=== PATIENT | male | born 1955 | race Caucasian/White ===

== ENCOUNTER 2016-12-07 14:33 | Emergency (ER) | payer BC, OTHER ==
[2016-12-07 14:43] VITALS: BP 162/83
[2016-12-07] MEDS ORDERED: Tetan/Diph/Pertus SYR(Tdap)* 0.5 ML SYR(BOOSTRIX) use SYR IM ONE (14:56)
--- NOTE | 2016-12-07 15:13 | UC ---
Skin Complaint HPI - HPI Summary HPI Summary: Found tick in R hip 2 days ago and pulled off. Today feels fatigued and achy. - History of Current Complaint Chief Complaint: UCSkin Time Seen by Provider: 12/07/16 14:44 Stated Complaint: TICK BITE Hx Obtained From: Patient Onset/Duration: Gradual Onset Timing: Constant Onset Severity: Mild Current Severity: Mild Location: Discrete Character: Redness Aggravating: Nothing Alleviating: Nothing Associated Signs & Symptoms: Positive: Fever Related History: Insect Bite/Sting - Allergy/Home Medications Allergies/Adverse Reactions: Allergies Allergy/AdvReac Type Severity Reaction Status Date / Time No Known Allergies Allergy Verified 12/07/16 14:42 Review of Systems Constitutional: Chills, Fatigue Skin: Other - tick bite Eyes: Negative ENT: Negative Respiratory: Negative Cardiovascular: Negative Gastrointestinal: Negative Genitourinary: Negative Motor: Negative Neurovascular: Negative Musculoskeletal: Negative Neurological: Negative Psychological: Negative All Other Systems Reviewed And Are Negative: Yes PMH/Surg Hx/FS Hx/Imm Hx Previously Healthy: Yes - Surgical History Surgical History: None - Family History Known Family History: Negative: Blood Disorder - Social History Occupation: Employed Full-time Lives: With Family Alcohol Use: Occasionally Substance Use Type: None Smoking Status (MU): Never Smoked Tobacco - Immunization History Most Recent Tetanus Shot: Pt unsure Physical Exam Triage Information Reviewed: Yes Appearance: Well-Appearing, No Pain Distress Vital Signs: Initial Vital Signs Temp 100.3 F 12/07/16 14:41 Pulse 110 12/07/16 14:41 Resp 16 12/07/16 14:41 BP 162/83 12/07/16 14:41 Pulse Ox 97 12/07/16 14:41 Vital Signs Reviewed: Yes Eye Exam: Normal Eyes: Positive: Conjunctiva Clear ENT Exam: Normal ENT: Positive: Normal ENT inspection, Hearing grossly normal, Pharynx normal, TMs normal Dental Exam: Normal Neck exam: Normal Neck: Positive: Supple, Nontender, No Lymphadenopathy Respiratory Exam: Normal Respiratory: Positive: Chest non-tender, Lungs clear, Normal breath sounds, No respiratory distress, No accessory muscle use Cardiovascular: Positive: No Murmur, Tachycardia Musculoskeletal Exam: Normal Musculoskeletal: Positive: Strength Intact, ROM Intact, No Edema Neurological Exam: Normal Neurological: Positive: Alert Psychological Exam: Normal Skin Exam: Normal - tick bite site benign, no erythema, streaking, or drainage Course/Dx - Diagnoses Provider Diagnoses: early localized lyme infection Discharge - Discharge Plan Condition: Stable Disposition: HOME Prescriptions: Amoxicillin CAP* [Amoxicillin 500 MG CAP*] 500 mg PO TID #42 cap Patient Education Materials: Lyme Disease (ED) Referrals: Rob Romero MD [Medical Doctor] - 2 Weeks Additional Instructions: Please follow up with Mauri in the next couple weeks to recheck on your symptoms as well as to discuss your blood pressure. Come back here at any time if you have a sudden turn for the worse.
== END 2016-12-07 15:30 | disposition home or self-care (01) ==
LOC: UCEAST 14:33
DX: A69.20 Lyme disease, unspecified (principal); Z23 Encounter for immunization
CPT/HCPCS: 90471; 90715; 99212; G0463

== ENCOUNTER 2018-08-22 08:39 | Emergency (ER) | payer OTHER ==
[2018-08-22 09:01] VITALS: BP 168/92
--- NOTE | 2018-08-22 09:10 | UC ---
Laceration HPI - HPI Summary HPI Summary: Pt present to with and son. pt RHD. 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 Pt reports paresthesia to tip left middle. tdap 1 year ago . no analgesia taken. Not anticoagulated. No other injuries Pt medications reviewed this visit - History Of Current Complaint Chief Complaint: UCLaceration Stated Complaint: FINGER LAC Time Seen by Provider: 08/22/18 09:10 Hx Obtained From: Patient, Family/Milk Route Supervisor Laceration Location: Finger Pain Intensity: 4 - Allergies/Home Medications Allergies/Adverse Reactions: Allergies Allergy/AdvReac Type Severity Reaction Status Date / Time No Known Allergies Allergy Verified 12/07/16 14:42 PMH/Surg Hx/FS Hx/Imm Hx Previously Healthy: Yes - Surgical History Surgical History: None - Family History Known Family History: Positive: Non-Contributory Negative: Blood Disorder - Social History Occupation: Employed Part-time Lives: With Family Alcohol Use: Occasionally Substance Use Type: None Smoking Status (MU): Never Smoked Tobacco - Immunization History Most Recent Tetanus Shot: a year ago Review of Systems All Other Systems Reviewed And Are Negative: Yes Skin: Positive: Other - lacerations left hand Neurovascular: Positive: Other - decreased sensation left middle finger tuft Musculoskeletal: Positive: Other: - lacerations left hand Physical Exam - Summary Physical Exam Summary: Vital Signs Reviewed: Yes A+Ox3 mild istress Eyes: Conjunctiva Clear ENT: Hearing grossly normal neck: supple Respiratory: Positive: No respiratory distress, No accessory muscle use Cardiovascular: skin color reflect adequate perfusion 2+ radial, ulnar CBT <2 sec partially avulsed tip left middle finger, CBT <2 sec left index Musculoskeletal Exam: + fle/ext mcp, dip, pip middle, index left hand with discomfort of flexion of dip for both Neurological: Positive: Alert, ambulatory without difficulty + decreased sensation tip of left middle Psychological: Positive: Normal Response To Family Skin: Positive: no rash, no ecchymosis left middlle finger: significant lacerations to tip including distal margin of nail, through tuft extending in 3 directions along pad no extension prox DIP - total linearl laceration length 4cm right middle: pt with 1cm laceration distal pad, no nail involvment with ecchymosis of pad and small subungal hematoma, + circumferential edema to tip Triage Information Reviewed: Yes Vital Signs: Initial Vital Signs Temp 97 F 08/22/18 08:52 Pulse 96 08/22/18 08:52 Resp 18 08/22/18 08:52 BP 168/92 08/22/18 08:52 Pulse Ox 100 08/22/18 08:52 Procedures - Laceration/Wound Repair 2 Location: upper extremity Description: Linear Anesthesia: Marcaine Length, Depth and Shape: 1cm distal pad left index Irrigated w/ Saline (ccs): 250 Laceration/Wound Explored: clean Closure: Single Layer Suture Type: Nylon - 4-0 Number of Sutures: 2 Layer Closure?: No Sterile Dressing Applied?: Yes Laceration Repair - Laceration Repair 1 Procedure Summary: Middle finger, left verbal permission to treat time out completed with RN at bedside pt prepped in usual, sterile fashion digital marcaine block placed copious irrigation with 500ml sterile saline under pressure Placed a total of 13 sutures, simple interrupted, 4-0 Nylon with good apprioxmation. Pt with some deformity related to edema and skin avulsion. removed small fragment of lacerated distal nail and place a suture through nail into distal tip pt tolerated well Covered with vasoline gauze, non-stick gauze, and tube gauze reviewed with pt wound care s/s infection return precautions Description: Irregular Laceration Size After Repair: Length (cm) - 4 Debridement: removal of small avulsed distal nail (5mm) Type Injection: Digital Anesthesia Used: 0.25% Marcaine - 7ml Cleansing Completed Via Routine Prep: Yes Irrigation With Pressure Irrigation Device: Yes Closure Material: Sutures Closure Method: Single Layer Suture Of: Skin Suture Type: Nylon - 4-0 Diagnostics - Radiology No standard instances Radiology Interpretation Completed By: Radiologist - Patient Name: PHI EVANS Medical Record#: [id number] Ordering Physician: Bambi Payne MD Acct.#: [id number] : 1955 Age: 63 Sex: M Location: [facility] Exam Date: 08/22/18920 ADM Status: REG ER Order Information: FINGER LEFT MIDDLE Accession Number: [id number] CPT: 02658 HISTORY: hand vs snowblower - deep laceration distal . COMPARISONS: None VIEWS: 3, Frontal, lateral, and oblique views of the left third digit. FINDINGS: BONE DENSITY: Normal. BONES: There is a comminuted, displaced fracture through the tuft of the distal phalanx of the third digit. There is a comminuted, nondisplaced fracture of the tuft of the distal phalanx of the second digit. JOINTS: There is no arthropathy. ALIGNMENT: There is no dislocation. SOFT TISSUES: Unremarkable. OTHER FINDINGS: None. IMPRESSION: 1. COMMINUTED DISPLACED FRACTURE OF THE TUFT OF THE DISTAL PHALANX OF THE THIRD DIGIT. 2. COMMINUTED, NONDISPLACED FRACTURE OF THE TUFT OF THE DISTAL PHALANX OF THE SECOND DIGIT. <Electronically signed by Anshul Arhcer MD in OV > 08/22/18939 Dictated By: Anshul Archer MD Dictated Date/Time: 939 Transcribed Date/Time: 08/22/18939 Copy to: CC:Bambi Payne MD; No Primary Care Phys,NOPCP Imaging - [facility] - [facility] - [facility] [address] [place] [address] ph ) ph ([phone]) ph ([phone]) This report is only to be considered final once signed by the Provider(s) as displayed in the "< Electronically Signed by >" field (s). Absence of a signature indicates the report is in a draft status and still needs to be finalized. In the event this document was created by someone other than the signing Provider, the individual initiating the document will be listed in the "Entered by:" or "Dictated by:" briceño. 1 of 1 Laceration Course/Dx - Course/Dx Course Of Treatment: Pt sustained extensive laceration to left distal middle finger from snnow blower. Pt also with 1cm laceration, edema and ecchymosis index left. Pt with tuft fractures to both digits. finger/ tetanus utd pt started on augmentin. reviewed wound care with pt. s/s infection. d/w pt regarding circulation to distal fingers. currently cbt satisfactory, but needs close monitoring. elevate. augmentin. motrin/apap product - Rx Maybell with narcotic precaution. Called to arrange f/u with hand surgery - requested to see pt today at time of UC discharge. pt in agreement and comfortable with plan. Elevated BP - pt in pain - Diagnosis Provider Diagnosis: Laceration of left index finger, Laceration of left middle finger, Open fracture of tuft of distal phalanx of finger Discharge - Sign-Out/Discharge Documenting (check all that apply): Patient Departure All imaging exams completed and their final reports reviewed: Yes - Discharge Plan Condition: Stable Disposition: HOME Prescriptions: Amoxicillin/Clavulanate TAB* [Augmentin TAB 875*] 875 mg PO BID #20 tab HYDROcodone/ACETAMIN 5-325 MG* [Maybell 5-325 TAB*] 12 tab PO Q6H PRN #20 tab MDD 8 PRN Reason: Severe Pain Ondansetron ODT TAB* [Zofran 4 MG Odt TAB*] 4 mg PO Q6HR #10 tab.odt Patient Education Materials: Finger Fracture (ED), Finger Laceration (ED) Referrals: No Primary Care Phys,NOPCP [Primary Care Provider] - Sherry Wright MD [Medical Doctor] - (Go directly to the office - they are expecting you) Additional Instructions: - Take antibiotics as prescribed until gone - Elevate your arm to help with swelling and pain - Okay to alternate ibuprofen (Advil, Motrin) 600mg and Tylenol product ( Tylenol or Maybell) every 3 hours for pain or fever. Maybell contains a narcotic, Hydocodone. Do NOT drive, operate machinery, drink alcohol while taking this medications. Okay to take Zofran (nausea medication) 15 minutes before taking the pain medication as it may cause nausea. Take with food. Do NOT take for more than 4-5 days. The pain medication may cause constipation - use a stool softner as needed - Go directly to the [facility] orthopedic office - the hand surgeon, Dr. Wright, is expecting you. Dr. Wright will discuss further care instructions (wound care, suture care) with you - Billing Disposition and Condition Condition: STABLE Disposition: Home
[2018-08-22] MEDS ORDERED: Bupivacaine 0.25% SDV PF* 10 ML VIAL INJ ONE (09:41)
[2018-08-22] MEDS ORDERED: Amoxicillin/Clavulanate TAB* 500 MG PO ONE (11:59)
[2018-08-22] MEDS ORDERED: HYDROcodone/ACETAMIN 5-325 MG* 1 TAB PO ONE (12:00)
[2018-08-22] MEDS ORDERED: Ondansetron ODT TAB* 4 MG PO ONE (12:00)
== END 2018-08-22 12:15 | disposition home or self-care (01) ==
LOC: UCEAST 08:39
DX: S62.633B Displaced fracture of distal phalanx of left middle finger, initial encounter for open fracture (principal); S62.661B Nondisplaced fracture of distal phalanx of left index finger, initial encounter for open fracture; W31.89XA Contact with other specified machinery, initial encounter; Y92.9 Unspecified place or not applicable
CPT/HCPCS: 12031; 12032; 73140; 99212; A9270-GY; G0463; J3490